=== PATIENT | male | born 1975 | race Caucasian/White ===

== ENCOUNTER 2017-11-19 22:12 | Emergency (ER) | payer BC ==
--- OUTSIDE RECORDS SUMMARY | 2017-11-19 22:15 | XMS REPORT | Clinical Summary ---
:1975 Author Organization [facility] Address [address] [place] [address] Care Team Providers Name Role Phone Elsy Peck MD Primary Care Provider Allergies No Known Allergies Current Medications Prescription Sig. Disp. Refills Start Date End Date Status ASPIRIN/ACETAMINOPH Take by mouth. Active EN/CAFFEINE (EXCEDRIN MIGRAINE ORAL) fluticasone 2 sprays by 16 g 1 06/17/2016 Active (FLONASE) 50 Each Nare mcg/actuation nasal route daily. spray metFORMIN Take 1 tablet 60 tablet 2 07/10/2016 Active (GLUCOPHAGE) 500 mg (500 mg total) tablet by mouth 2 (two) times a day with meals. naproxen (NAPROSYN) 1 tab PO BID 30 tablet 1 11/18/2016 Active 500 MG tablet with meals PRN pain sitaGLIPtin Take 1 tablet 30 tablet 0 08/03/2017 08/03/2018 Active (JANUVIA) 50 MG (50 mg total) tablet by mouth daily. Need office visit for further RFs. sitaGLIPtin Take 1 tablet 30 tablet 11 08/04/2016 08/02/2017 Discontinued (JANUVIA) 50 MG (50 mg total) tablet by mouth daily. naproxen (NAPROSYN) Take 1 tablet 60 tablet 1 08/04/2016 11/18/2016 Discontinued 500 MG tablet (500 mg total) by mouth 2 (two) times a day with meals. Active Problems Problem Noted Date Diabetes mellitus without complication 08/04/2016 Last Assessment & Plan: No signs of DR. Annual exams recommended. MRx updated. Warned pt vision may fluctuate due to blood sugar levels. May return when blood sugar levels stabilize for recheck. Letter sent to Dr. Koby Peck Blepharitis of upper and lower eyelids of both eyes 08/04/2016 Last Assessment & Plan: Warm compresses, lid hygiene 2-3 times per day, discussed with patient. Artificial tears as needed for dryness. Has dry eye sx's associated with blepharitis. Information given. Dry eye syndrome 08/04/2016 Last Assessment & Plan: ATs prn. Blink/gel and Systane samples given. Encounters Date Type Specialty Care Team Description 08/02/2017 Refill Family Medicine Elsy Peck MD 11/18/2016 Refill Family Medicine Elsy Peck MD after 11/18/2016 Family History Medical History Relation Name Comments Skin cancer Father No Known Problems Mother Relation Name Status Comments Father Alive Mother Alive Social History Tobacco Use Types Packs/Day Years Used Date Current Every Day Smoker Cigarettes Smokeless Tobacco: Never Used Alcohol Use Drinks/Week oz/Week Comments Yes Sex Assigned at Date Recorded Not on file Last Filed Vital Signs Not on file Plan of Treatment Health Maintenance Due Date Last Done Comments DIABETIC FOOT EXAM 1983 URINE MICROALBUMIN 06/20/2017 06/20/2016 INFLUENZA VACCINE 12/09/2017 DIABETIC RETINAL EYE EXAM 08/04/2018 08/04/2016 Results Not on fileafter 11/18/2016 Insurance Payer Benefit Plan / Group Subscriber ID Type Phone Address BCBS BCBS CHOICE PPO/FEDERAL EMPL PPO xxxxxxxxxxxx PPO Home: Chuck JUAN [place]LO [place]ILLY [phone] [place], [facility] [id number]
[2017-11-19 23:16] LABS: Absolute Lymphocytes (CBC) 2.2 K/uL (0.7-4.9); Absolute Monocytes 0.9 K/uL (0.1-1.3); Absolute Neutrophil 6.6 K/uL (1.8-8.0); Basophils % 0.8 % (0-1.3); Eosinophils % 1.8 % (0-4.4); Hematocrit 49.8 % (39.6-49.0); Lymphocytes % 22.3 % (15.3-44.8); MCH 33.2 pg (27.0-35.0); MCV 95.6 fL (80-100); MPV 9.1 fL (7.6-11.3)
[2017-11-19 23:23] LABS: Urine Bacteria <20 /HPF (NONE SEEN); Urine Culture Reflex Order NOT NEEDED; Urine RBC <5 /HPF (NONE SEEN)
[2017-11-19 23:26] LABS: Urine Blood TRACE (NEG); Urine Glucose 2+ (NEG); Urine Protein NEGATIVE (NEG); Urine Specific Gravity 1.015 (1.005-1.030); Urine pH 5.5 (5.0-7.0)
[2017-11-20] MEDS ORDERED: NA CHLORIDE 0.9% 1,000 ML ONE (00:21)
[2017-11-20] MEDS ORDERED: ONDANSETRON 4 MG/2 ML VIAL ONE (00:37)
[2017-11-20 00:48] LABS: ALT/SGPT 52 U/L (12-78); AST/SGOT 19 U/L (15-37); Albumin 4.3 g/dL (3.4-5.0); Alkaline Phosphatase 60 U/L (45-117); Amylase Level 40 U/L (25-115); BUN Blood Urea Nitrogen 17 mg/dL (7-18); Bicarbonate 25 mmol/L (21-32); Bilirubin Direct 0.1 mg/dL (0-0.2); Bilirubin Total 0.7 mg/dL (0.2-1.0); Glucose Level 128 mg/dL (74-106); Lipase 129 U/L (73-393); Potassium 3.9 mmol/L (3.5-5.1); Protein, Total 7.7 g/dL (6.4-8.2); Sodium Level 141 mmol/L (136-145)
[2017-11-20 01:01] LABS: Creatine Phosphokinase 52 U/L (39-308)
[2017-11-20 01:01] LABS: Barbiturates NEGATIVE (NEGATIVE); Benzodiazepines NEGATIVE (NEGATIVE); Cocaine NEGATIVE (NEGATIVE); METHAMPHETAM NEGATIVE (NEGATIVE); Methadone NEGATIVE (NEGATIVE); Opiates NEGATIVE (NEGATIVE); Phencyclidine NEGATIVE (NEGATIVE); THC Cannibis NEGATIVE (NEGATIVE)
--- NOTE | 2017-11-20 01:58 | EDPHYS ---
Physician Documentation [facility] Name: Ciro Lambert Age: 42 yrs Sex: Male : 1975 Arrival Date: 11/19/2017 Time: 22:15 Bed 23 Private MD: ED Physician Tato Judd HPI: 11/20 00:12 This 42 yrs old Male presents to ER via Ambulatory with complaints of snw Numbness Of Arm, Vomiting/Diarrhea, Chills. 00:13 The patient presents to the emergency department with nausea, vomiting, diarrhea. snw Onset: The symptoms/episode began/occurred gradually, 1 week(s) ago, and became persistent. Possible causes: unknown. The symptoms are aggravated by nothing. Associated signs and symptoms: Pertinent positives: diarrhea, nausea, vomiting. Severity of symptoms: At their worst the symptoms were moderate. It is unknown whether or not the patient has had similar symptoms in the past. The patient has not recently seen a physician. hx of DM, [place] the beach pt became ill and vomited, felt a little better and then N/V/D recurred and pt started having numbness to left side of body. + smoker, + etoh. Historical: - Allergies: 11/19 22:33 Doxycycline; bb - Home Meds: 22:33 invokana [Active]; unknown medication [Active]; bb - PMHx: 22:33 Diabetes - NIDDM; bb - PSHx: 22:33 Hernia repair; bb - Immunization history:: Adult Immunizations up to date. - Social history:: Smoking status: Patient uses tobacco products, smokes one-half pack cigarettes per day, Patient uses alcohol, occasionally. Patient/guardian denies using street drugs. - Ebola Screening: : No symptoms or risks identified at this time. ROS: 11/20 00:11 Constitutional: Negative for fever, chills, and weight loss, Eyes: Negative for injury, snw pain, redness, and discharge, ENT: Negative for injury, pain, and discharge, Neck: Negative for injury, pain, and swelling, Cardiovascular: Negative for chest pain, palpitations, and edema, Respiratory: Negative for shortness of breath, cough, wheezing, and pleuritic chest pain, Back: Negative for injury and pain, : Negative for injury, bleeding, discharge, and swelling, MS/Extremity: Negative for injury and deformity, Skin: Negative for injury, rash, and discoloration. Neuro: Positive for numbness, of the left side of body. Exam: 00:11 Constitutional: This is a well developed, well nourished patient who is awake, alert, snw and in no acute distress. Head/Face: Normocephalic, atraumatic. Eyes: Pupils equal round and reactive to light, extra-ocular motions intact. Lids and lashes normal. Conjunctiva and sclera are non-icteric and not injected. Cornea within normal limits. Periorbital areas with no swelling, redness, or edema. ENT: Nares patent. No nasal discharge, no septal abnormalities noted. Tympanic membranes are normal and external auditory canals are clear. Oropharynx with no redness, swelling, or masses, exudates, or evidence of obstruction, uvula midline. Mucous membranes moist. Neck: Trachea midline, no thyromegaly or masses palpated, and no cervical lymphadenopathy. Supple, full range of motion without nuchal rigidity, or vertebral point tenderness. No Meningismus. Chest/axilla: Normal chest wall appearance and motion. Nontender with no deformity. No lesions are appreciated. Cardiovascular: Regular rate and rhythm with a normal S1 and S2. No gallops, murmurs, or rubs. Normal PMI, no JVD. No pulse deficits. Respiratory: Lungs have equal breath sounds bilaterally, clear to auscultation and percussion. No rales, rhonchi or wheezes noted. No increased work of breathing, no retractions or nasal flaring. 00:11 Back: No spinal tenderness. No costovertebral tenderness. Full range of motion. Skin: Warm, dry with normal turgor. Normal color with no rashes, no lesions, and no evidence of cellulitis. MS/ Extremity: Pulses equal, no cyanosis. Neurovascular intact. Full, normal range of motion. Neuro: Awake and alert, GCS 15, oriented to person, place, time, and situation. Cranial nerves II-XII grossly intact. Motor strength 5/5 in all extremities. Sensory grossly intact. Cerebellar exam normal. Normal gait. 00:11 Abdomen/GI: Inspection: abdomen appears normal, Bowel sounds: normal, Palpation: abdomen is soft and non-tender. Vital Signs: 11/19 22:33 BP 138 / 107; Pulse 80; Resp 18; Temp 97.8(O); Pulse Ox 97% on R/A; Weight 89.81 kg bb (R); Height 5 ft. 11 in. (180.34 cm) (R); Pain 7/10; 23:02 BP 138 / 89; Pulse 87; Resp 18; Pulse Ox 98% ; tl3 11/20 00:20 BP 137 / 96; Pulse 81; Resp 18; Pulse Ox 98% on R/A; tl3 00:24 BP 131 / 83; Pulse 74; Resp 18; Pulse Ox 100% ; Pain 0/10; mg2 01:33 BP 116 / 72; Pulse 74; Resp 18 S; Pulse Ox 100% on R/A; Pain 0/10; mg2 01:58 BP 137 / 87; Pulse 77; Resp 18; Pulse Ox 100% ; Pain 0/10; mg2 11/19 22:33 Body Mass Index 27.62 (89.81 kg, 180.34 cm) bb MDM: 11/19 22:22 Patient medically screened. [facility] 11/20 01:58 Data reviewed: vital signs, nurses notes. Data interpreted: Pulse oximetry: on room air snw is 100 %. Interpretation: normal. Counseling: I had a detailed discussion with the patient and/or guardian regarding: the historical points, exam findings, and any diagnostic results supporting the discharge/admit diagnosis, the presence of at least one elevated blood pressure reading (>120/80) during this emergency department visit, lab results, the need for outpatient follow up, to return to the emergency department if symptoms worsen or persist or if there are any questions or concerns that arise at home. Special discussion: Based on the patient's Hx, exam, and Dx evaluation, there is no indication for emergent surgery or inpatient Tx. It is understood by the patient/guardian that if the Sx's persist or worsen they need to return immediately for re-evaluation. Based on the history and exam findings, there is no indication for further emergent testing or inpatient evaluation. I discussed with the patient/guardian the need to see the primary care provider for further evaluation of the symptoms. 11/19 22:33 Order name: Amylase, Serum; Complete Time: 01:23 snw 11/19 22:33 Order name: Basic Metabolic Panel; Complete Time: 01:23 snw 11/19 22:33 Order name: CBC with Diff; Complete Time: 23:47 snw 11/19 22:33 Order name: Creatinine for Radiology; Complete Time: 23:47 snw 11/19 22:33 Order name: Hepatic Function; Complete Time: 01:23 snw 11/19 22:33 Order name: Lipase; Complete Time: 01:23 snw 11/19 22:33 Order name: Urine Microscopic Only; Complete Time: 23:47 snw 11/19 22:33 Order name: Blood Culture Adult (2) snw 11/19 22:48 Order name: Urine Dipstick--Ancillary (enter results); Complete Time: 23:47 rg2 11/19 23:09 Order name: UDS; Complete Time: 01:23 snw 11/19 23:10 Order name: Add On-Lab snw 11/19 23:10 Order name: Creatine Phosphokinase; Complete Time: 01:23 EDMS 11/19 23:10 Order name: Troponin I; Complete Time: 23:47 EDMS 11/19 22:33 Order name: IV Saline Lock; Complete Time: 00:16 snw 11/19 22:33 Order name: Labs collected and sent; Complete Time: 00:16 snw 11/19 22:33 Order name: Urine Dipstick-Ancillary (obtain specimen); Complete Time: 00:17 snw Administered Medications: 00:24 Drug: NS 0.9% 1000 ml Route: IV; Rate: 1 bolus; Site: right forearm; mg2 01:56 Follow up: Response: No adverse reaction; IV Status: Completed infusion mg2 00:37 Drug: Zofran 4 mg Route: IVP; Infused Over: 2 mins; Site: right forearm; tl3 01:34 Follow up: Response: No adverse reaction; Nausea is decreased mg2 01:56 Follow up: Response: No adverse reaction; Nausea is decreased mg2 Disposition: 11/20/17 01:58 Discharged to Home. Impression: Volume depletion, Vomiting, unspecified, Diarrhea, unspecified. - Condition is Stable. - Discharge Instructions: Food Choices to Help Relieve Diarrhea, Adult, Cyclic Vomiting Syndrome, Clear Liquid Diet, Rehydration, Adult. - Prescriptions for Bentyl 20 mg Oral Tablet - take 1 tablet by ORAL route every 6 hours As needed; 20 tablet. Zofran 4 mg Oral Tablet - take 1 tablet by ORAL route every 12 hours As needed; 20 tablet. - Medication Reconciliation Form, Thank You Letter, Antibiotic Education, Prescription Opioid Use form. - Work release form (11/20/17 18:39). eb - Follow up: Emergency Department; When: As needed; Reason: Worsening of condition. Follow up: Private Physician; When: 2 - 3 days; Reason: Recheck today's complaints, Continuance of care, Re-evaluation by your physician. Addendum: 11/22/2017 06:34 Co-signature as Attending Physician, Tato Judd MD I agree with the assessment and c callejas plan of care. Signatures: Dispatcher [employer] EDWA Tato Judd MD MD cha Therrien, Shelly, ELECTRICIAN SUBSTATION-C ELECTRICIAN SUBSTATION-Csnw Chichi Gardiner, RN RN bb Lena Cain RN RN tl3 Akira Lucero RN RN mg2 Linda Thrasher Corrections: (The following items were deleted from the chart) 11/19 23:08 22:33 Home Meds: Flexeril Oral [Inactive]; bb tl3 11/20 02:15 01:58 11/20/2017 01:58 Discharged to Home. Impression: Volume depletion; Vomiting, mg2 unspecified; Diarrhea, unspecified. Condition is Stable. Forms are Medication Reconciliation Form, Thank You Letter, Antibiotic Education, Prescription Opioid Use. Follow up: Emergency Department; When: As needed; Reason: Worsening of condition. Follow up: Private Physician; When: 2 - 3 days; Reason: Recheck today's complaints, Continuance of care, Re-evaluation by your physician. snw
--- NOTE | 2017-11-20 01:58 | ER ---
Nurse's Notes [facility] Name: Ciro Lambert Age: 42 yrs Sex: Male : 1975 Arrival Date: 11/19/2017 Time: 22:15 Bed 23 Private MD: Diagnosis: Volume depletion;Vomiting, unspecified;Diarrhea, unspecified Presentation: 11/19 22:28 Presenting complaint: Patient states: he was at the beach 2 weeks ago got sick with bb vomiting and feeling fatigued, symptoms got better but he is still not feeling well, now he has had watery diarrhea x 3 to 4 days also is having sharp pain from his left shoulder down his left side with numbness to his last three fingers for 3 to 4 days. Transition of care: patient was not received from another setting of care. Onset of symptoms is unknown. Risk Assessment: Do you want to hurt yourself or someone else? Patient reports no desire to harm self or others. Initial Sepsis Screen: Does the patient meet any 2 criteria? No. Patient's initial sepsis screen is negative. Does the patient have a suspected source of infection? No. Patient's initial sepsis screen is negative. Care prior to arrival: None. 22:28 Method Of Arrival: Ambulatory bb 22:28 Acuity: ANA 3 bb Historical: - Allergies: 22:33 Doxycycline; bb - Home Meds: 22:33 invokana [Active]; unknown medication [Active]; bb - PMHx: 22:33 Diabetes - NIDDM; bb - PSHx: 22:33 Hernia repair; bb - Immunization history:: Adult Immunizations up to date. - Social history:: Smoking status: Patient uses tobacco products, smokes one-half pack cigarettes per day, Patient uses alcohol, occasionally. Patient/guardian denies using street drugs. - Ebola Screening: : No symptoms or risks identified at this time. Screenin:02 Abuse screen: Denies threats or abuse. Nutritional screening: No deficits noted. tl3 Tuberculosis screening: No symptoms or risk factors identified. Fall Risk None identified. Assessment: 23:02 General: Appears uncomfortable, slender, well groomed, well developed, well nourished, tl3 Behavior is calm, cooperative, appropriate for age. Pain: Complains of pain in abdomen and left hand Pain currently is 5 out of 10 on a pain scale. Neuro: Level of Consciousness is awake, alert, obeys commands, Oriented to person, place, time, situation, Appropriate for age. Neuro: Reports numbness in left hand. Cardiovascular: Patient's skin is warm and dry. Respiratory: Airway is patent Respiratory effort is even, unlabored, Respiratory pattern is regular, symmetrical. GI: Abdomen is round Reports cramping, diarrhea, vomiting. : No signs and/or symptoms were reported regarding the genitourinary system. EENT: No signs and/or symptoms were reported regarding the EENT system. Derm: Reports mosquito bites. Musculoskeletal: No signs and/or symptoms reported regarding the musculoskeletal system. 11/20 00:20 Reassessment: Patient appears in no apparent distress at this time. No changes from tl3 previously documented assessment. Patient and/or family updated on plan of care and expected duration. Pain level reassessed. Patient is alert, oriented x 3, equal unlabored respirations, skin warm/dry/pink. pt states that he is feeling hungry, but not sure if he would be able to hold anything down. Vital Signs: 11/19 22:33 BP 138 / 107; Pulse 80; Resp 18; Temp 97.8(O); Pulse Ox 97% on R/A; Weight 89.81 kg bb (R); Height 5 ft. 11 in. (180.34 cm) (R); Pain 7/10; 23:02 BP 138 / 89; Pulse 87; Resp 18; Pulse Ox 98% ; tl3 11/20 00:20 BP 137 / 96; Pulse 81; Resp 18; Pulse Ox 98% on R/A; tl3 00:24 BP 131 / 83; Pulse 74; Resp 18; Pulse Ox 100% ; Pain 0/10; mg2 01:33 BP 116 / 72; Pulse 74; Resp 18 S; Pulse Ox 100% on R/A; Pain 0/10; mg2 01:58 BP 137 / 87; Pulse 77; Resp 18; Pulse Ox 100% ; Pain 0/10; mg2 11/19 22:33 Body Mass Index 27.62 (89.81 kg, 180.34 cm) bb ED Course: 11/19 22:15 Patient arrived in ED. am2 22:20 Lorna Deleon F[facility]-C [facility] snw 22:20 Taot Judd MD is Attending Physician. snw 22:22 Brenton, Lena, RN is Primary Nurse. tl3 22:32 Triage completed. bb 22:33 Arm band placed on Patient placed in an exam room, on a stretcher. bb 23:02 Patient has correct armband on for positive identification. Placed in gown. Bed in low tl3 position. Call light in reach. Side rails up X 1. Pulse ox on. NIBP on. 23:02 No provider procedures requiring assistance completed. Initial lab(s) drawn, by de, tl3 sent to lab. Urine collected: clean catch specimen, clear. Inserted saline lock: 20 gauge in right forearm, using aseptic technique. Blood collected. 07 00:20 Urine collected: clean catch specimen, clear, lab needed more urine to complete testing.tl3 02:05 IV discontinued, intact, bleeding controlled, No redness/swelling at site. Pressure mg2 dressing applied. Administered Medications: 00:24 Drug: NS 0.9% 1000 ml Route: IV; Rate: 1 bolus; Site: right forearm; mg2 01:56 Follow up: Response: No adverse reaction; IV Status: Completed infusion mg2 00:37 Drug: Zofran 4 mg Route: IVP; Infused Over: 2 mins; Site: right forearm; tl3 01:34 Follow up: Response: No adverse reaction; Nausea is decreased mg2 01:56 Follow up: Response: No adverse reaction; Nausea is decreased mg2 Outcome: 01:58 Discharge ordered by MD. snw 02:05 Discharged to home ambulatory. mg2 02:05 Condition: stable 02:05 Discharge instructions given to patient, Instructed on discharge instructions, follow up and referral plans. medication usage, Demonstrated understanding of instructions, follow-up care, medications, Prescriptions given X 2. 02:15 Patient left the ED. mg2 Signatures: Lorna Deleon, COMB FIXER-C COMB FIXER-Csnw Chichi Gardiner, RN RN bb Laurence Damian am2 Lena Cain, RN RN tl3 Akira Lucero RN RN mg2 Corrections: (The following items were deleted from the chart) 11/19 23:08 22:33 Home Meds: Flexeril Oral [Inactive]; bb tl3
== END 2017-11-20 02:15 | disposition home or self-care (01) ==
LOC: ER 22:12
DX: E86.9 Volume depletion, unspecified (principal); R19.7 Diarrhea, unspecified; F17.210 Nicotine dependence, cigarettes, uncomplicated; E11.9 Type 2 diabetes mellitus without complications; Z88.1 Allergy status to other antibiotic agents
CPT/HCPCS: 36415; 80048; 80076; 80307; 81003; 81015; 82150; 82550; 83690; 84484; 85025; 87040; 96361; 96374; 99284; J2405; J7030